=== PATIENT | female | born 1975 | race Caucasian/White ===

== ENCOUNTER 2023-11-17 09:21 | Day surgery (SDC) | payer BC ==
[2023-11-11 14:51] LABS: BILIRUBIN,URINE NEGATIVE (Neg); CLARITY,URINE CLEAR (Clear); COLOR,URINE YELLOW (Yellow); GLUCOSE, URINE NEGATIVE (Neg); KETONES,URINE NEGATIVE (Neg); LEUKOCYTE ESTERASE ,URINE NEGATIVE (Neg); NITRITES, URINE NEGATIVE (Neg); OCCULT BLOOD,URINE NEGATIVE (Neg); PROTEIN,URINE NEGATIVE (Neg); UA COLLECTION TYPE CLN CATCH MIDSTREAM; UROBILINOGEN,URINE 0.2 E.U/dL (0.2-1.0)
[2023-11-11 14:57] LABS: BASOPHILS # (AUTO) 0.1 X10'3 (0-0.2); BASOPHILS % (AUTO) 0.8 % (0-1); EOSINOPHILS # (AUTO) 0.2 X10'3 (0-0.9); EOSINOPHILS % (AUTO) 1.6 % (0-6); LYMPHOCYTES # (AUTO) 3.5 X10'3 (1.1-4.8); LYMPHOCYTES % (AUTO) 37.9 % (21-51); MEAN CORPUSCULAR HEMOGLOBIN 31.2 PG (27.0-31.0); MEAN CORPUSCULAR HGB CONC 33.7 g/dL (33.0-36.5); MEAN CORPUSCULAR VOLUME 92.5 FL (78-98); MEAN PLATELET VOLUME 8.1 FL (7.4-10.4); MONOCYTES # (AUTO) 0.5 X10'3 (0-0.9); MONOCYTES % (AUTO) 5.1 % (2-12); NEUTROPHILS # (AUTO) 5.1 X10'3 (1.8-7.7); NEUTROPHILS % (AUTO) 54.6 % (42-75); PRE OP HEMATOCRIT 44.3 % (35.0-45.0); PRE OP HEMOGLOBIN 14.9 g/dL (12.0-16.0); PRE OP PLATELET COUNT 388 X10'3 (140-440); PRE OP WHITE BLOOD COUNT 9.3 10'3 (4.8-10.8); RED BLOOD COUNT 4.79 X10'6 (4.20-5.60); RED CELL DISTRIBUTION WIDTH 13.5 % (11.5-14.5)
[2023-11-11 15:10] LABS: ALBUMIN 3.9 G/DL (3.4-5.0); ALBUMIN/GLOBULIN RATIO 1.1 (1.1-1.5); ALKALINE PHOSPHATASE 84 IU/L (46-116); BLOOD UREA NITROGEN 13 MG/DL (7-18); BUN/CREATININE RATIO 15.7 (10.0-20.0); CALCIUM 9.2 MG/DL (8.5-10.1); CHLORIDE 102 MMOL/L (99-107); CREATININE 0.83 MG/DL (0.40-0.90); PRE OP ALT 19 U/L (30-65); PRE OP ANION GAP 10 (8-16); PRE OP AST 14 U/L (10-37); PRE OP BILIRUB, TOTAL 0.5 MG/DL (0.0-1.0); PRE OP GLUCOSE 94 MG/DL (70-104); PRE OP POTASSIUM 3.7 MMOL/L (3.4-5.1); PRE OP SODIUM 138 MMOL/L (135-145); TOTAL CARBON DIOXIDE 26.4 MMOL/L (24-32); TOTAL PROTEIN 7.6 G/DL (6.4-8.2); eGFR 73 ML/MIN
[2023-11-11 15:11] LABS: PRE OP PROTIME 10.5 SECONDS (9.0-12.0)
[2023-11-11 15:16] LABS: HCG SERUM QL NEGATIVE
[~2023-11-17] VITALS: Ht 160 cm; Wt 93.7 kg
[2023-11-17] VITALS (9 sets, daily range): BP systolic 93–119; BP diastolic 59–84; PULSE 74–86; RESP 16–22; TEMP 98.2; O2SAT 93–98
[2023-11-17] MEDS: DOCUMENT DATE & TIME OF BETA-BLOCKER PO ONE (05:30)
[~2023-11-17 09:21] MED LIST: ARIP10TA57 PO; BUSP30TA3 PO; PROP10TA10 PO; TOPI25TA49 PO; VITAMIN D2; magnesium; vitamin b-12
[2023-11-17] MEDS: famotidine 20mg tablet PO ONE (10:01)
[2023-11-17] MEDS: ringers solution, lacted 1,000 ML IV SCH (10:02)
[2023-11-17] MEDS: cefazolin 2gm/D5W 100mL 100 ML IV ONE (10:03)
[2023-11-17] MEDS ORDERED: BUPIVAcaine 0.5% inj/PF 30 ML ONE (12:37)
[2023-11-17] MEDS ORDERED: LIDOcaine 1% (10mg/ml)w/preservative inj. 20ml MDV ONE (12:37)
[2023-11-17] MEDS ORDERED: midazolam 1 mg/ML 2ml injection ONE (12:59)
[2023-11-17] MEDS ORDERED: fentaNYL/PF 50MCG/1 ML 2ML syringe ONE (12:59)
[2023-11-17] MEDS ORDERED: propofol inj 20 ML IV ONE (13:02)
[2023-11-17] MEDS ORDERED: ROPIVAcaine 0.5% (5mg/ml) 30ml vial ONE ×2 (13:04)
[2023-11-17] MEDS ORDERED: sevoflurane 250ml liquid IH ONE (13:06)
[2023-11-17] MEDS ORDERED: dexamethasone sod phosphate 4mg/ml inj. ONE (13:07)
[2023-11-17] MEDS: bacitracin 15gm ointment TP ONE (13:49)
[2023-11-17] MEDS ORDERED: morphine 4 MG/ML inj SYRINge IV PRN (14:45)
[2023-11-17] MEDS ORDERED: meperidine/PF 25mg/ml syringe IV PRN ×3 (14:45)
[2023-11-17] MEDS ORDERED: proCHLORperazine 10 MG/2 ml inj IV PRN (14:45)
[2023-11-17] MEDS ORDERED: morphine 2 MG/ML inj. syringe IV PRN (14:45)
[2023-11-17] MEDS ORDERED: ringers solution, lacted 1,000 ML IV SCH (14:45)
[2023-11-17] MEDS ORDERED: ondansetron/PF 4mg/2ml inj IV PRN (14:45)
[2023-11-17] MEDS ORDERED: ondansetron/PF 4mg/2ml inj ONE (15:05)
== END 2023-11-17 17:03 | disposition home or self-care (01) ==
LOC: PAS 09:21
PROVIDERS: ATTEND Podiatrist Foot & Ankle Surgery
DX: M19.071 Primary osteoarthritis, right ankle and foot (principal); G89.18 Other acute postprocedural pain; E66.9 Obesity, unspecified; I20.9 Angina pectoris, unspecified; F41.9 Anxiety disorder, unspecified; G47.30 Sleep apnea, unspecified; I25.2 Old myocardial infarction; Z87.891 Personal history of nicotine dependence; Z79.899 Other long term (current) drug therapy; Z68.36 Body mass index [BMI] 36.0-36.9, adult
CPT/HCPCS: 28122; 28737; 28740; 36415; 64445; 71046; 73620; 80053; 81003; 82948; 84703; 85025; 85610; 85730; 93005; A6222; C1713; C1776; J0690; J0735; J1100; J2250; J2405; J2704; J2795; J3010; J7030; J7120; Z7506; Z7508; Z7512; 76000; A4618; A6253; A6449; A6455; A7000; J3490

== ENCOUNTER 2024-05-04 08:03 | Day surgery (SDC) | payer BC, OTHER ==
[2024-05-04] VITALS (7 sets, daily range): BP systolic 114–136; BP diastolic 82–98; PULSE 81–97; RESP 12–23; TEMP 98.7; O2SAT 95–100
[~2024-05-04] VITALS: Ht 160 cm; Wt 90.1 kg
[2024-05-04] MEDS: ceFAZolin 2gm in dextrose, iso 50 ML IV ONE (05:30)
[~2024-05-04 08:03] MED LIST changes: -ARIP10TA57 PO; +ARIP10TA87 PO; -BUSP30TA3 PO; +DOCUMENT DATE & TIME OF BETA-BLOCKER PO ONE; +SERT-434 PO; -VITAMIN D2; -magnesium; -vitamin b-12
[2024-05-04] MEDS: ringers solution, lacted 1,000 ML IV SCH (09:23)
[2024-05-04] MEDS: famotidine 20mg tablet PO ONE (09:23)
[2024-05-04] MEDS ORDERED: midazolam 1 mg/ML 2ml injection ONE (09:46)
[2024-05-04] MEDS ORDERED: fentaNYL/PF 50MCG/1 ML 2ML syringe ONE (09:46)
[2024-05-04 10:00] LABS: BASOPHILS # (AUTO) 0.1 X10'3 (0-0.2); BASOPHILS % (AUTO) 0.7 % (0-1); EOSINOPHILS # (AUTO) 0.1 X10'3 (0-0.9); LYMPHOCYTES # (AUTO) 2.3 X10'3 (1.1-4.8); LYMPHOCYTES % (AUTO) 25.5 % (21-51); MEAN CORPUSCULAR HEMOGLOBIN 30.4 PG (27.0-31.0); MEAN CORPUSCULAR HGB CONC 33.8 g/dL (33.0-36.5); MEAN CORPUSCULAR VOLUME 89.9 FL (78-98); MEAN PLATELET VOLUME 8.4 FL (7.4-10.4); MONOCYTES # (AUTO) 0.5 X10'3 (0-0.9); NEUTROPHILS # (AUTO) 6.2 X10'3 (1.8-7.7); NEUTROPHILS % (AUTO) 67.8 % (42-75); PRE OP HEMATOCRIT 44.5 % (35.0-45.0); PRE OP PLATELET COUNT 371 X10'3 (140-440); PRE OP WHITE BLOOD COUNT 9.1 10'3 (4.8-10.8); PREOP URINE HCG NEGATIVE (NEGATIVE); RED BLOOD COUNT 4.95 X10'6 (4.20-5.60); RED CELL DISTRIBUTION WIDTH 13.4 % (11.5-14.5)
[2024-05-04 10:02] LABS: BILIRUBIN,URINE NEGATIVE (Neg); CLARITY,URINE CLEAR (Clear); COLOR,URINE YELLOW (Yellow); GLUCOSE, URINE NEGATIVE (Neg); KETONES,URINE NEGATIVE (Neg); LEUKOCYTE ESTERASE ,URINE NEGATIVE (Neg); NITRITES, URINE NEGATIVE (Neg); OCCULT BLOOD,URINE NEGATIVE (Neg); PH,URINE 6.5 (4.8-8.0); PROTEIN,URINE NEGATIVE (Neg); UA COLLECTION TYPE CLN CATCH MIDSTREAM; UROBILINOGEN,URINE 0.2 E.U/dL (0.2-1.0)
[2024-05-04 10:09] LABS: PRE OP PROTIME 10.6 SECONDS (9.0-12.0)
[2024-05-04 10:11] LABS: ALBUMIN 3.7 G/DL (3.4-5.0); ALBUMIN/GLOBULIN RATIO 0.9 (1.1-1.5); ALKALINE PHOSPHATASE 98 IU/L (46-116); BLOOD UREA NITROGEN 14 MG/DL (7-18); BUN/CREATININE RATIO 14.1 (10.0-20.0); CALCIUM 9.2 MG/DL (8.5-10.1); CHLORIDE 106 MMOL/L (99-107); CREATININE 0.99 MG/DL (0.40-0.90); PRE OP ALT 26 U/L (30-65); PRE OP ANION GAP 11 (8-16); PRE OP AST 12 U/L (10-37); PRE OP BILIRUB, TOTAL 0.5 MG/DL (0.0-1.0); PRE OP GLUCOSE 109 MG/DL (70-104); PRE OP POTASSIUM 3.7 MMOL/L (3.4-5.1); PRE OP SODIUM 142 MMOL/L (135-145); TOTAL CARBON DIOXIDE 24.9 MMOL/L (24-32); TOTAL PROTEIN 7.7 G/DL (6.4-8.2); eCRCL 54 ML/MIN; eGFR 59 ML/MIN
[2024-05-04] MEDS: aprepitant 40mg capsule PO ONE (10:59)
[2024-05-04] MEDS: scopolamine 1MG/72H patch 1 PATCH PATCH.TD.3 TD ONE (11:00)
[2024-05-04] MEDS ORDERED: BUPIVAcaine 2.5mg/ml inj 50ml vial (contains preservative) ONE (11:03)
[2024-05-04] MEDS ORDERED: bacitracin 15gm ointment TP ONE (11:03)
[2024-05-04] MEDS ORDERED: proCHLORperazine 10 MG/2 ml inj IV PRN (11:05)
[2024-05-04] MEDS ORDERED: enalaprilat dihydrate 2.5mg/2ml vial IV PRN (11:05)
[2024-05-04] MEDS ORDERED: morphine 4 MG/ML inj SYRINge IV PRN (11:05)
[2024-05-04] MEDS ORDERED: ringers solution, lacted 1,000 ML IV SCH (11:05)
[2024-05-04] MEDS ORDERED: meperidine/PF 25mg/ml syringe IV PRN ×3 (11:05)
[2024-05-04] MEDS ORDERED: labetalol 20mg/4ml (5mg/ml) syringe IV PRN (11:05)
[2024-05-04] MEDS ORDERED: morphine 2 MG/ML inj. syringe IV PRN (11:05)
[2024-05-04] MEDS ORDERED: ondansetron/PF 4mg/2ml inj IV PRN (11:05)
[2024-05-04] MEDS ORDERED: sevoflurane 250ml liquid IH ONE (11:13)
== END 2024-05-04 14:42 | disposition home or self-care (01) ==
LOC: PAS 08:03
PROVIDERS: ATTEND Podiatrist Foot & Ankle Surgery
DX: T84.84XA Pain due to internal orthopedic prosthetic devices, implants and grafts, initial encounter (principal); M79.671 Pain in right foot; E66.9 Obesity, unspecified; G47.33 Obstructive sleep apnea (adult) (pediatric); F41.9 Anxiety disorder, unspecified; I25.2 Old myocardial infarction; Z87.891 Personal history of nicotine dependence; Z79.899 Other long term (current) drug therapy; Z90.49 Acquired absence of other specified parts of digestive tract; Z90.89 Acquired absence of other organs; Z98.890 Other specified postprocedural states; Z68.35 Body mass index [BMI] 35.0-35.9, adult; Z88.8 Allergy status to other drugs, medicaments and biological substances; Y83.8 Other surgical procedures as the cause of abnormal reaction of the patient, or of later complication, without mention of misadventure at the time of the procedure; Y92.89 Other specified places as the place of occurrence of the external cause
CPT/HCPCS: 20680; 28740; 36415; 73620; 80053; 81003; 81025; 82948; 85025; 85610; 85730; A6222; C1713; C1776; J0131; J0690; J1885; J2250; J2405; J2704; J3010; J7030; J7120; J8501; Z7506; Z7508; Z7512; 76000; A4618; A4620; A6253; A6449; A6455; A7000; J3490

== ENCOUNTER 2024-11-15 11:06 | Day surgery (SDC) | payer OTHER ==
--- NOTE | 2024-11-09 14:14 | ELECTROCARDIOGRAPH REPORT ---
[facility] Test Date: 2024-11-09 Test Time: 14:11:13 Pat Name: MAIRA COX Department: PRE/OP CARDIOLOGY Room: Gender: F Jalousie Installer: NILSA : 1975 Requested By: JOHNNY RAMIREZ Order Number: [id number] Reading MD: Dr. SHERRILL Evans Measurements Intervals [place] Rate: 98 P: 58 PA: 133 QRS: 55 QRSD: 96 T: -20 QT: 350 QTc: 447 Interpretive Statements Sinus rhythm Borderline T abnormalities, inferior leads Electronically Signed On 11-09-2024 20:04:[address] SHERRILL Evans Please click the below link to view image of tracing.
[2024-11-09 15:04] LABS: BILIRUBIN,URINE NEGATIVE (Neg); CLARITY,URINE CLEAR (Clear); COLOR,URINE YELLOW (Yellow); GLUCOSE, URINE NEGATIVE (Neg); KETONES,URINE NEGATIVE (Neg); LEUKOCYTE ESTERASE ,URINE NEGATIVE (Neg); OCCULT BLOOD,URINE NEGATIVE (Neg); PH,URINE 5.5 (4.8-8.0); PROTEIN,URINE NEGATIVE (Neg); UROBILINOGEN,URINE 0.2 E.U/dL (0.2-1.0)
[2024-11-09 15:09] LABS: BASOPHILS # (AUTO) 0.1 X10'3 (0-0.2); EOSINOPHILS # (AUTO) 0.2 X10'3 (0-0.9); EOSINOPHILS % (AUTO) 1.3 % (0-6); LYMPHOCYTES # (AUTO) 3.8 X10'3 (1.1-4.8); MEAN CORPUSCULAR HEMOGLOBIN 29.8 PG (27.0-31.0); MEAN CORPUSCULAR VOLUME 90.1 FL (78-98); MEAN PLATELET VOLUME 8.4 FL (7.4-10.4); MONOCYTES # (AUTO) 0.8 X10'3 (0-0.9); MONOCYTES % (AUTO) 6.7 % (2-12); NEUTROPHILS # (AUTO) 6.7 X10'3 (1.8-7.7); PRE OP HEMOGLOBIN 15.5 g/dL (12.0-16.0); PRE OP PLATELET COUNT 450 X10'3 (140-440); PRE OP WHITE BLOOD COUNT 11.6 10'3 (4.8-10.8); RED BLOOD COUNT 5.22 X10'6 (4.20-5.60); RED CELL DISTRIBUTION WIDTH 13.7 % (11.5-14.5)
[2024-11-09 15:17] LABS: NITRITES, URINE NEGATIVE (Neg); UA COLLECTION TYPE NON-SPECIFIED
[2024-11-09 15:23] LABS: ALBUMIN 4.1 G/DL (3.4-5.0); ALBUMIN/GLOBULIN RATIO 1.1 (1.1-1.5); ALKALINE PHOSPHATASE 129 IU/L (46-116); BLOOD UREA NITROGEN 17 MG/DL (7-18); BUN/CREATININE RATIO 15.7 (10.0-20.0); CALCIUM 9.7 MG/DL (8.5-10.1); CHLORIDE 101 MMOL/L (99-107); CREATININE 1.08 MG/DL (0.40-0.90); PRE OP ALT 31 U/L (30-65); PRE OP ANION GAP 8 (8-16); PRE OP AST 14 U/L (10-37); PRE OP BILIRUB, TOTAL 0.8 MG/DL (0.0-1.0); PRE OP GLUCOSE 113 MG/DL (70-104); PRE OP POTASSIUM 3.7 MMOL/L (3.4-5.1); PRE OP SODIUM 140 MMOL/L (135-145); TOTAL CARBON DIOXIDE 30.8 MMOL/L (24-32); eGFR 53 ML/MIN
[2024-11-09 15:39] LABS: PRE OP PROTIME 10.6 SECONDS (9.0-12.0)
[~2024-11-15] VITALS: Ht 160 cm; Wt 90.7 kg
[~2024-11-15 11:06] MED LIST changes: -DOCUMENT DATE & TIME OF BETA-BLOCKER PO ONE; +TOPI-255 PO; -TOPI25TA49 PO; +ceFAZolin 2gm in dextrose, iso 50 ML IV ONE; +famotidine 20mg tablet PO ONE; +ringers solution, lacted 1,000 ML IV SCH
[2024-11-15 11:33] VITALS: RESP 15; O2SAT 97
== END 2024-11-15 12:00 | disposition swing bed, planned readmission (89) ==
LOC: PAS 11:06
PROVIDERS: ATTEND Podiatrist Foot & Ankle Surgery
DX: M79.671 Pain in right foot (principal); Z53.8 Procedure and treatment not carried out for other reasons; M19.071 Primary osteoarthritis, right ankle and foot; T84.84XA Pain due to internal orthopedic prosthetic devices, implants and grafts, initial encounter; G40.909 Epilepsy, unspecified, not intractable, without status epilepticus; Y83.8 Other surgical procedures as the cause of abnormal reaction of the patient, or of later complication, without mention of misadventure at the time of the procedure; F41.9 Anxiety disorder, unspecified; F32.A Depression, unspecified; Z98.890 Other specified postprocedural states; G47.30 Sleep apnea, unspecified; Z79.899 Other long term (current) drug therapy
CPT/HCPCS: 36415; 80053; 81003; 85025; 85610; 85730; 93005; J0690; J7120

== ENCOUNTER 2024-11-15 12:02 | Inpatient (IN) | payer BC, OTHER ==
[~2024-11-15] VITALS: Ht 160 cm; Wt 98.6 kg
[~2024-11-15 12:02] MED LIST changes: -ceFAZolin 2gm in dextrose, iso 50 ML IV ONE; -famotidine 20mg tablet PO ONE; -ringers solution, lacted 1,000 ML IV SCH
[2024-11-15] MEDS: acetaminophen 325mg tablet PO ONE ×3 (12:26→18:45)
--- NOTE | 2024-11-15 12:54 | RADIOLOGY REPORT ---
EXAM: DI CHEST,SINGLE VIEW Indication: sepsis alert Technique: Single frontal view of the chest was obtained Comparison: None FINDINGS: Lines and Tubes: None Lungs: No focal consolidation. Pleura: No effusion. No pneumothorax. Cardiomediastinal contours: Unremarkable Bones: No acute osseous abnormality. IMPRESSION: No acute cardiopulmonary disease.
[2024-11-15 13:45] LABS: BASOPHILS # (AUTO) 0.1 X10'3 (0-0.2); BASOPHILS % (AUTO) 0.4 % (0-1); EOSINOPHILS # (AUTO) 0.2 X10'3 (0-0.9); EOSINOPHILS % (AUTO) 0.8 % (0-6); HEMOGLOBIN 13.8 g/dl (12.0-16.0); LYMPHOCYTES # (AUTO) 1.9 X10'3 (1.1-4.8); MEAN CORPUSCULAR HEMOGLOBIN 29.5 PG (27.0-31.0); MEAN CORPUSCULAR HGB CONC 32.9 g/dL (33.0-36.5); MEAN CORPUSCULAR VOLUME 89.7 FL (78-98); MEAN PLATELET VOLUME 8.4 FL (7.4-10.4); MONOCYTES % (AUTO) 8.4 % (2-12); NEUTROPHILS # (AUTO) 19.7 X10'3 (1.8-7.7); NEUTROPHILS % (AUTO) 82.4 % (42-75); PLATELET COUNT 348 X10'3 (140-440); RED BLOOD COUNT 4.68 X10'6 (4.20-5.60); RED CELL DISTRIBUTION WIDTH 13.5 % (11.5-14.5); WHITE BLOOD COUNT 23.8 X10'3 (4.5-11.0)
[2024-11-15 13:47] LABS: ALBUMIN 3.1 G/DL (3.4-5.0); ANION GAP 14 (8-16); BLOOD UREA NITROGEN 12 MG/DL (7-18); BUN/CREATININE RATIO 13.5 (10.0-20.0); CALCIUM 8.9 MG/DL (8.5-10.1); CHLORIDE 98 MMOL/L (99-107); CREATININE 0.89 MG/DL (0.40-0.90); GLUCOSE 110 MG/DL (70-104); POTASSIUM 3.4 MMOL/L (3.5-5.1); SODIUM 134 MMOL/L (135-145); TOTAL CARBON DIOXIDE 22.3 MMOL/L (24-32); eCRCL 62 ML/MIN; eGFR 67 ML/MIN
--- NOTE | 2024-11-15 14:12 | Physician Documentation ---
History of Present Illness Chief Complaint: Fever Stated Complaint: FEVER Time Seen by MD: 13:51 Primary Medical Doctor: none Mode of Arrival: Ambulatory, Wheelchair HPI 49-year-old female presenting with abdominal pain that began this morning when she woke up. Pain is located in the right lower side of her stomach and does not radiate. She states that it is about moderate rating it at approximately six to 7/10 on intensity. Pain has been constant. Additionally she states that she has developed a fever and a headache as well. She reports that she was supposed to have surgery today on her foot at this hospital but when she went to preop they measured her temperature and told her she had a fever and sent her to the emergency department and subsequently canceled the surgery. She denies any nausea, vomiting or any other associated symptoms. Medication Reconciliation Allergies: Uncoded Allergies: NARCOTIC DRUGS (Adverse Reaction, Unknown, NAUSEA, 05/03/24) Scheduled Aripiprazole (Aripiprazole), 1 TAB PO DAILY, (Reported) Sertraline HCl (Sertraline HCl), 1 TAB PO DAILY, (Reported) Topiramate (Topiramate), 2 TAB PO DAILY, (Reported) Scheduled PRN Propranolol Hcl* (Inderal*), 1 TAB PO DAILY PRN for for anxiety/agitation, (Reported) Review of Systems All Other Systems at this time: Reviewed and Negative Physical Exam Vital Signs: Temperature: 101.5, Source: Axillary, Heart Rate: 111, Respiratory Rate: 18, BP: 146/74, Pulse Oximetry: 96, Weight: 98.600 Oxygen Flow Rate: 0 Physical Exam I have reviewed the triage vitals. CONST: Well developed and well nourished. In no acute distress HENT: Head Atraumatic EYES: Pupils are equal, round and reactive to light. Normal conjunctiva NECK: Normal range of motion. Supple. CARDIO: Normal rate and regular rhythm. No murmurs, rubs, or gallops. S1, S2. PULM/CHEST: No respiratory distress. Lungs clear to auscultation. No wheeze ABD: Soft. Tenderness to palpation over the right lower quadrant. Nondistended. Bowel sounds normal. No guarding. : Exam deferred MSK: No edema. No deformity. NEURO: Alert and oriented to person, place and time. Moving all extremities SKIN: Warm and dry. PSYCH: Normal mood and affect. Good eye contact. Progress Results/Orders Results/Orders Orders - PATO REYNOSO MD Cbc/Diff (11/15/24 12:16) Culture Blood (11/15/24 12:16) Urinalysis, Cult If Indicated (11/15/24 12:16) Chest,Single View (11/15/24 12:34) Monitor (11/15/24 12:16) Saline Lock (11/15/24 12:16) Straight Cath For Urine Sample (11/15/24 12:16) Man Diff (11/15/24 13:27) Normal Saline 1000ml (Sodium Chloride 10 (11/15/24 14:05) Ketorolac Trometh 30mg/Ml Vial (Toradol (11/15/24 14:05) Piperacillin/Tazo 3.375gm/50ml (Zosyn 3. (11/15/24 14:05) Pt Inr (11/15/24 14:08) PTT (11/15/24 14:08) Ct Abdomen Pelvis (11/15/24 14:08) Acetaminophen 325mg Tablet (Tylenol Tabl (11/15/24 14:10) Completed Orders - PATO REYNOSO MD Chest,Single View (11/15/24 12:34) Procalcitonin (11/15/24 12:16) BMP (11/15/24 12:16) Lacticsepsis (11/15/24 12:16) Acetaminophen 325mg Tablet (Tylenol Tabl (11/15/24 12:20) Medications Received in ER Medications (Trade) Dose Ordered Sig/Flaca Route PRN Reason Start Time Stop Time Status Last Admin Dose Admin (Tylenol tablet) 650 mg ONCE ONCE PO 11/15/24 12:20 11/15/24 12:21 DC 11/15/24 12:26 650 MG Vital Signs 11/15/24 11/15/24 11/15/24 12:10 13:30 13:49 Temp 101.5 101.5 Pulse 108 111 Resp 16 18 18 B/P (MAP) 157/86 146/74 (98) Pulse Ox 96 96 O2 Flow Rate 0 0 Laboratory Tests Test 11/15/24 13:27 White Blood Count 23.8 H Red Blood Count 4.68 Hemoglobin 13.8 Hematocrit 42.0 Mean Corpuscular Volume 89.7 Mean Corpuscular Hemoglobin 29.5 Mean Corpuscular Hemoglobin Concent 32.9 L Red Cell Distribution Width 13.5 Platelet Count 348 Mean Platelet Volume 8.4 Neutrophils (%) (Auto) 82.4 H Lymphocytes (%) (Auto) 8.0 L Monocytes (%) (Auto) 8.4 Eosinophils (%) (Auto) 0.8 Basophils (%) (Auto) 0.4 Neutrophils # (Auto) 19.7 H Lymphocytes # (Auto) 1.9 Monocytes # (Auto) 2.0 H Eosinophils # (Auto) 0.2 Basophils # (Auto) 0.1 CBC Comment Basophilic Stippling Sodium Level 134 L Potassium Level 3.4 L Chloride Level 98 L Carbon Dioxide Level 22.3 L Anion Gap 14 Blood Urea Nitrogen 12 Creatinine 0.89 Estimated GFR/1.73 m2 67 BUN/Creatinine Ratio 13.5 Glucose Level 110 H Lactic Acid Level 1.1 Calcium Level 8.9 Albumin 3.1 L Procalcitonin < 0.05 Chemistry Comments EKG/XRAY/CT/US/VASC/MRI EKG : Additional Comment Sinus tachycardia with a rate of 102 beats per minute, no ischemia, normal axis, interpreted by ED MD Chest X-Ray : Additional Comments EXAM: DI CHEST,SINGLE VIEW Indication: sepsis alert Technique: Single frontal view of the chest was obtained Comparison: None FINDINGS: Lines and Tubes: None Lungs: No focal consolidation. Pleura: No effusion. No pneumothorax. Cardiomediastinal contours: Unremarkable Bones: No acute osseous abnormality. IMPRESSION: No acute cardiopulmonary disease. : Impression EXAM: CT CT HEAD INDICATION: headache EXAM DATE: 11/15/2024 05:16 PM COMPARISON: None TECHNIQUE: CT of the head without intravenous contrast. Radiation Dose Information: CTDI volume is 42.73 mGy. Dose-length product is 730.94 mGy*cm FINDINGS: There is no evidence of acute intracranial hemorrhage, extra-axial collection, mass effect, midline shift, herniation or hydrocephalus. The ventricles, sulci and cisterns are age appropriate. The carver-white differentiation is intact. The visualized paranasal sinuses and mastoid air cells are clear. The surrounding soft tissues and osseous structures are unremarkable. IMPRESSION: 1. No evidence of acute intracranial hemorrhage, mass effect or hydrocephalus. Exam: CT CT ABDOMEN PELVIS W/ IV CONTRAST History: RLQ pain- r/o appendicitis Comparison Study: None C TECHNIQUE: A digital sheep killer image was obtained. During the uneventful, intravenous administration of contrast material, multislice data acquisition was obtained through the abdomen and pelvis. The data set was subsequently reconstructed into axial images. Images were reviewed on a work station using a combination of axial and multiplanar using a variety of window levels and settings. Radiation Dose Information: CT Dose: CTDI volume is 25 mGy. Dose-length product is 250 mGy*cm FINDINGS: Lung Bases: No acute or significant lung base finding. Normal heart size. No pleural or pericardial effusion. Liver: Hepatic steatosis. Gallbladder and Biliary Tree: Gallbladder is surgically absent. Spleen: Unremarkable Pancreas: The pancreas is normal in appearance without focal lesions or abnormal enhancement. Adrenal Glands: Unremarkable Kidneys: Kidneys demonstrate normal symmetric enhancement without focal lesions, calculi or hydronephrosis. Bladder: Unremarkable Bowel: The stomach is grossly normal in appearance. Small bowel and colon are normal in caliber and distribution. Normal appendix is visualized in the right lower quadrant without findings of appendicitis. Ascites: Absent Lymphadenopathy: No mesenteric, retroperitoneal or periportal lymphadenopathy. Abdominal Wall and Mesentery: There is a right upper quadrant umbilical hernia containing fat measuring 2.5 cm. Vasculature: The visualized abdominal aorta is normal in size and caliber. Abdominal and pelvic vessels demonstrate normal enhancement. Pelvic Organs: IUD is present. Musculoskeletal: No aggressive focal bony lesions, acute fractures or dislocation. Soft tissues: Unremarkable. IMPRESSION: No acute abnormality in the abdomen or pelvis. Medical Decision Making Additional Comments 49-year-old female presenting with a fever and right lower quadrant abdominal pain as well as a headache. Lab workup indicates a significant WBC elevation of 23. Patient was also febrile upon presentation with a temperature of 101. She was medicated with two doses of 650 mg acetaminophen with improvement in her temperature. For her pain the patient was treated with IV Toradol 30 mg. She was also started on IV normal saline. CT of the abdomen and pelvis showed no appendicitis or other abnormalities. Her urinalysis did have some mild leukocyte esterase but was not clearly are strongly suggestive of a urinary tract infection. Patient does have a headache and there is some concern for meningitis as well. The patient was started on IV vancomycin and IV Zosyn. Also given 10 mg of IV Decadron. Given these findings the patient will need to be admitted for further treatment and care. Patient does require a lumbar puncture as well. Patient will be admitted to hospitalist service pending a lumbar puncture which will be signed out to incoming ED physician. Dr. Zamora of the hospitalist service did accept the patient. Departure Disposition: ADMITTED INPATIENT Admission Level of Care: Med/Surg with Tele Impression: Primary Impression: Fever Additional Impression: UTI (urinary tract infection) Condition: Guarded Referrals: NO PRIMARY CARE PROVIDER (PCP) Signature Scribe Signature: 1 Attestation: 1 PATO REYNOSO MD November 15, 2024 14:12
[2024-11-15] MEDS ORDERED: iohexol 300mg/ml 100ml inj. ONE (14:23)
[2024-11-15 14:25] LABS: PLATELET ESTIMATE NORMAL; TOTAL CELLS COUNTED 100
[2024-11-15] MEDS: piperacillin/tazo 3.375gm/50ml 50 ML IV SCH (14:31)
[2024-11-15 14:34] LABS: APTT 25 SECONDS (22-32); INR 1.1 INR; PROTHROMBIN TIME 10.8 SECONDS (9.0-12.0)
[2024-11-15] MEDS: normal saline 1000ml 1,000 ML IV ONE (14:51)
[2024-11-15] MEDS: ketorolac trometh 30MG/ML vial 30 MG/ML VIAL IV ONE (14:53)
[2024-11-15 15:10] LABS: BILIRUBIN,URINE NEGATIVE (Neg); CLARITY,URINE CLEAR (Clear); COLOR,URINE YELLOW (Yellow); GLUCOSE, URINE NEGATIVE (Neg); KETONES,URINE NEGATIVE (Neg); LEUKOCYTE ESTERASE ,URINE SMALL (Neg); NITRITES, URINE NEGATIVE (Neg); OCCULT BLOOD,URINE TRACE-INTACT (Neg); PROTEIN,URINE NEGATIVE (Neg); UROBILINOGEN,URINE 0.2 E.U/dL (0.2-1.0)
[2024-11-15 15:18] LABS: UA COLLECTION TYPE CLN CATCH MIDSTREAM
[2024-11-15 15:46] LABS: RBC,URINE 0-2 /HPF (0-2)
[2024-11-15 15:49] LABS: BACTERIA,URINE FEW /HPF (Neg); MUCUS STRANDS NONE SEEN /LPF (Neg); SQUAMOUS EPITHELIAL CELL,UR FEW /LPF (FEW); URIC ACID CRYSTALS FEW /HPF (NEGATIVE)
--- NOTE | 2024-11-15 16:12 | RADIOLOGY REPORT ---
Exam: CT CT ABDOMEN PELVIS W/ IV CONTRAST History: RLQ pain- r/o appendicitis Comparison Study: None C TECHNIQUE: A digital oyster tonger image was obtained. During the uneventful, intravenous administration of c ontrast material, multislice data acquisition was obtained through the abdomen and pelvis. The data s et was subsequently reconstructed into axial images. Images were reviewed on a work station using a c ombination of axial and multiplanar using a variety of window levels and settings. Radiation Dose Information: CT Dose: CTDI volume is 25 mGy. Dose-length product is 250 mGy*cm FINDINGS: Lung Bases: No acute or significant lung base finding. Normal heart size. No pleural or pericardial effusion. Liver: Hepatic steatosis. Gallbladder and Biliary Tree: Gallbladder is surgically absent. Spleen: Unremarkable Pancreas: The pancreas is normal in appearance without focal lesions or abnormal enhancement. Adrenal Glands: Unremarkable Kidneys: Kidneys demonstrate normal symmetric enhancement without focal lesions, calculi or hydroneph rosis. Bladder: Unremarkable Bowel: The stomach is grossly normal in appearance. Small bowel and colon are normal in caliber and d istribution. Normal appendix is visualized in the right lower quadrant without findings of appendici tis. Ascites: Absent Lymphadenopathy: No mesenteric, retroperitoneal or periportal lymphadenopathy. Abdominal Wall and Mesentery: There is a right upper quadrant umbilical hernia containing fat measuri ng 2.5 cm. Vasculature: The visualized abdominal aorta is normal in size and caliber. Abdominal and pelvic vess els demonstrate normal enhancement. Pelvic Organs: IUD is present. Musculoskeletal: No aggressive focal bony lesions, acute fractures or dislocation. Soft tissues: Unremarkable. IMPRESSION: No acute abnormality in the abdomen or pelvis. All CT scans at this medical facility are performed using dose modulation techniques as appropriate t o a performed exam including the following: Automated exposure control was utilized; adjustment of th e MA and/or KV according to patient size; and use of iterative reconstruction technique.
[2024-11-15] MEDS: dexamethasone sod phosphate 10mg/ml inj IV STA (17:30)
--- NOTE | 2024-11-15 17:31 | RADIOLOGY REPORT ---
EXAM: CT CT HEAD INDICATION: headache EXAM DATE: 11/15/2024 05:16 PM COMPARISON: None TECHNIQUE: CT of the head without intravenous contrast. Radiation Dose Information: CTDI volume is 42.73 mGy. Dose-length product is 730.94 mGy*cm FINDINGS: There is no evidence of acute intracranial hemorrhage, extra-axial collection, mass effect, midline s hift, herniation or hydrocephalus. The ventricles, sulci and cisterns are age appropriate. The carver-w arvin differentiation is intact. The visualized paranasal sinuses and mastoid air cells are clear. The surrounding soft tissues and osseous structures are unremarkable. IMPRESSION: 1. No evidence of acute intracranial hemorrhage, mass effect or hydrocephalus.
[2024-11-15] MEDS: vancomycin/NS 1 GM ADD-VANTAGE 250 ML IV ONE (18:45)
[2024-11-15] MEDS ORDERED: magnesium sulf-water 4G/100mL 100 ML IV PRN (19:25)
[2024-11-15] MEDS ORDERED: ondansetron/PF 4mg/2ml inj IV PRN (19:25)
[2024-11-15] MEDS ORDERED: mag hydrox/Alum hydrox/simeth 30ml oral suspension PO PRN (19:25)
[2024-11-15] MEDS ORDERED: potassium Cl 20 mEq SR tablet PO PRN (19:25)
[2024-11-15] MEDS ORDERED: HYDROmorphone inj. 0.5 MG/0.5 ML DISP.SYRIN IV PRN (19:25)
[2024-11-15] MEDS ORDERED: acetaminophen 325mg tablet PO PRN (19:25)
[2024-11-15] MEDS ORDERED: HYDROcodone/acetaminophen 5mg/325mg tablet PO PRN (19:25)
[2024-11-15] MEDS ORDERED: potassium Cl 40MEQ/1/2NS 520ml 520 ML IV PRN (19:25)
[2024-11-15] MEDS ORDERED: bisacodyl 10mg suppository rectal RC PRN (19:25)
[2024-11-15] MEDS ORDERED: HYDROmorphone/PF 0.2 MG/ML SYRINGE IV PRN (19:25)
[2024-11-15] MEDS ORDERED: magnesium sulf-water 2g/50mL 50 ML IV PRN (19:25)
[2024-11-15] MEDS ORDERED: HYDROcodone/acetaminophen 10/325mg tab PO PRN (19:25)
[2024-11-15] MEDS ORDERED: magnesium hydroxide 30ml (MOM) UD suspension PO PRN (19:25)
[2024-11-15] MEDS: docusate sod 100mg capsule PO SCH (19:50)
[2024-11-15] MEDS: K and/or MAG REPLACEMENT MC SCH (19:50)
[2024-11-15] MEDS: enoxaparin 40mg/0.4ml syringe SQ SCH (20:15)
[2024-11-15] MEDS: vancomycin inj. 750 MG in normal saline 250ml IV soln 250 ML IV ONE (20:36)
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
[2024-11-15 21:48] VITALS: BP 131/86; PULSE 84; RESP 13; TEMP 97.8; O2SAT 95
[2024-11-15] MEDS: potassium Cl 20 mEq SR tablet PO PRN (23:59)
[2024-11-16] MEDS: piperacillin/tazo 4.5gm/100ml 100 ML IV SCH
[2024-11-16 05:43] LABS: BASOPHILS % (AUTO) 0.1 % (0-1); EOSINOPHILS % (AUTO) 0 % (0-6); HEMATOCRIT 39.7 % (35.0-45.0); HEMOGLOBIN 13.3 g/dl (12.0-16.0); LYMPHOCYTES % (AUTO) 6.3 % (21-51); MEAN CORPUSCULAR HEMOGLOBIN 30.2 PG (27.0-31.0); MEAN CORPUSCULAR HGB CONC 33.5 g/dL (33.0-36.5); MEAN CORPUSCULAR VOLUME 90.3 FL (78-98); MEAN PLATELET VOLUME 8.5 FL (7.4-10.4); MONOCYTES # (AUTO) 1.1 X10'3 (0-0.9); MONOCYTES % (AUTO) 3.4 % (2-12); NEUTROPHILS # (AUTO) 27.9 X10'3 (1.8-7.7); NEUTROPHILS % (AUTO) 90.2 % (42-75); PLATELET COUNT 369 X10'3 (140-440); RED CELL DISTRIBUTION WIDTH 13.5 % (11.5-14.5)
[2024-11-16 06:00] VITALS: BP 126/68; PULSE 92; RESP 16; TEMP 98.5; O2SAT 95
[2024-11-16 06:01] LABS: ALANINE AMINOTRANSFERASE 27 U/L (12-78); ALBUMIN 2.5 G/DL (3.4-5.0); ALBUMIN/GLOBULIN RATIO 0.6 (1.1-1.5); ALKALINE PHOSPHATASE 119 IU/L (46-116); ANION GAP 8 (8-16); ASPARTATE AMINO TRANSFERASE 12 U/L (10-37); BILIRUBIN,TOTAL 0.6 MG/DL (0.1-1.0); BLOOD UREA NITROGEN 14 MG/DL (7-18); BUN/CREATININE RATIO 16.5 (10.0-20.0); CHLORIDE 107 MMOL/L (99-107); CREATININE 0.85 MG/DL (0.40-0.90); GLUCOSE 169 MG/DL (70-104); MAGNESIUM 2.1 MG/DL (1.5-2.4); POTASSIUM 3.9 MMOL/L (3.5-5.1); SODIUM 140 MMOL/L (135-145); TOTAL CARBON DIOXIDE 25.4 MMOL/L (24-32); TOTAL PROTEIN 6.8 G/DL (6.4-8.2); eCRCL 65 ML/MIN; eGFR 71 ML/MIN
[2024-11-16 06:49] LABS: TOTAL CELLS COUNTED 100
[2024-11-16 06:50] LABS: PLATELET ESTIMATE NORMAL
[2024-11-16] MEDS: vancomycin/NS 1 GM ADD-VANTAGE 250 ML IV SCH (08:00)
[2024-11-16] MEDS ORDERED: VANCOmycin 1250MG/NS 250ml Bag 250 ML IV SCH (08:00)
[2024-11-16] MEDS: normal saline 1000ml 1,000 ML IV SCH (08:12)
[2024-11-16 10:00] VITALS: BP 144/76; PULSE 104; RESP 21; TEMP 97.7; O2SAT 95
[2024-11-16] MEDS: nicotine 21mg patch - 24 hr TD ONE (10:47)
[2024-11-16 14:02] LABS: SYPHILIS SCREENING TEST POC NEGATIVE (Negative)
[2024-11-16 18:00] VITALS: BP 121/75; PULSE 80; RESP 18; TEMP 98.1; O2SAT 95
[2024-11-16 22:00] VITALS: BP 111/58; PULSE 82; RESP 16; TEMP 97.3; O2SAT 98
--- NOTE | 2024-11-16 22:24 | PROGRESS NOTE ---
Daily Progress Note Providers to CC ~ Antibiotic Timeout Antibiotic Ordered?: Yes Subjective The patient has been afebrile now for close to 24 [place] [id number]- the patient asked if she can have a STD and urine was sent for gonorrhea and chlamydia and for syphilis the patient had no appreciated vaginal lesions or perineal lesions Objective Vital Signs Date Time Temp Pulse Resp B/P (MAP) Pulse Ox O2 Delivery O2 Flow Rate FiO2 11/16/24 10:00 97.7 104 21 144/76 (98) 95 Room Air 11/15/24 22:32 0.0 Result Diagram: 11/16/2452211/16/24522 Gen. No acute distress alert and oriented 4 Lungs clear to ascultation bilaterally, no wheezes rales or rhonchi appreciated Heart normal sinus rhythm no murmurs rubs or clicks noted Abdomen soft nontender bowel sounds are normoactive no vaginal lesions appreciated ulcerations or drainage Lower extremities no clubbing cyanosis, nor edema appreciated bilaterally Coagulation Studies Laboratory Tests Test 11/15/24 13:27 Prothrombin Time 10.8 SECONDS (9.0-12.0) INR International Normalized Ratio 1.1 INR Activated Partial Thromboplast Time 25 SECONDS (22-32) Coagulation Comments Problem\Assessment\Plan Problems/Diagnosis: (1) Sepsis # sepsis possibly secondary to UTI- The patient is given fluid bolus in the ED Blood cultures has been obtained Urine cultures is pending IV Zosyn and IV vancomycin 11/16 one of two blood cultures are positive repeat blood cultures are ordered # hypokalemia on the potassium replacement protocol Has resolved # nicotine use disorder- I did spent 7 minutes discussing with the patient smoking cessation and the risks of continuing to vape nicotine including: stroke, heart attack. # DVT prophylaxis SCDs and SQ Lovenox Date of Service: November 16, 2024 Billing Provider: JESSICA FINCH DO Common Visit Codes: [id number] INP/OBS CARE(HIGH) JESSICA FINCH DO November 16, 2024 22:24
[2024-11-17] MEDS ORDERED: METH-798 PO (02:11)
[2024-11-17 06:00] VITALS: BP 173/86; PULSE 82; RESP 16; TEMP 97.3; O2SAT 98
[2024-11-17] MEDS: sertraline 50mg tablet PO SCH (07:09)
[2024-11-17] MEDS: nicotine 21mg patch - 24 hr TD SCH (07:09)
[2024-11-17] MEDS: aripiprazole 10MG tablet PO SCH (07:09)
[2024-11-17 07:23] LABS: BASOPHILS # (AUTO) 0.1 X10'3 (0-0.2); BASOPHILS % (AUTO) 0.4 % (0-1); EOSINOPHILS # (AUTO) 0.2 X10'3 (0-0.9); HEMATOCRIT 38.7 % (35.0-45.0); HEMOGLOBIN 12.9 g/dl (12.0-16.0); LYMPHOCYTES # (AUTO) 4.1 X10'3 (1.1-4.8); LYMPHOCYTES % (AUTO) 18.6 % (21-51); MEAN CORPUSCULAR HGB CONC 33.3 g/dL (33.0-36.5); MEAN CORPUSCULAR VOLUME 90.2 FL (78-98); MEAN PLATELET VOLUME 8.5 FL (7.4-10.4); MONOCYTES # (AUTO) 1.2 X10'3 (0-0.9); MONOCYTES % (AUTO) 5.4 % (2-12); NEUTROPHILS # (AUTO) 16.6 X10'3 (1.8-7.7); NEUTROPHILS % (AUTO) 74.6 % (42-75); PLATELET COUNT 387 X10'3 (140-440); RED BLOOD COUNT 4.29 X10'6 (4.20-5.60); RED CELL DISTRIBUTION WIDTH 13.6 % (11.5-14.5); WHITE BLOOD COUNT 22.2 X10'3 (4.5-11.0)
[2024-11-17] MEDS: VANCOMYCIN LEVEL IV ONE (07:31)
[2024-11-17 07:46] LABS: ALANINE AMINOTRANSFERASE 34 U/L (12-78); ALBUMIN 2.5 G/DL (3.4-5.0); ALBUMIN/GLOBULIN RATIO 0.6 (1.1-1.5); ALKALINE PHOSPHATASE 108 IU/L (46-116); ANION GAP 11 (8-16); ASPARTATE AMINO TRANSFERASE 20 U/L (10-37); BILIRUBIN,TOTAL 0.4 MG/DL (0.1-1.0); BLOOD UREA NITROGEN 13 MG/DL (7-18); BUN/CREATININE RATIO 15.1 (10.0-20.0); CALCIUM 8.7 MG/DL (8.5-10.1); CHLORIDE 105 MMOL/L (99-107); CREATININE 0.86 MG/DL (0.40-0.90); GLUCOSE 104 MG/DL (70-104); POTASSIUM 3.4 MMOL/L (3.5-5.1); SODIUM 140 MMOL/L (135-145); TOTAL CARBON DIOXIDE 24.5 MMOL/L (24-32); TOTAL PROTEIN 6.8 G/DL (6.4-8.2); eCRCL 64 ML/MIN; eGFR 70 ML/MIN
[2024-11-17] MEDS: propranolol 10mg tablet PO PRN (08:20)
[2024-11-17] MEDS: topiramate 25mg tablet PO SCH (08:21)
[2024-11-17] MEDS: acetaminophen 325mg tablet PO PRN (08:41)
[2024-11-17 10:00] VITALS: BP 146/92; PULSE 77; RESP 18; TEMP 98.9; O2SAT 99
[2024-11-17 18:00] VITALS: BP 142/94; PULSE 78; RESP 18; TEMP 98.4; O2SAT 97
[2024-11-17 22:00] VITALS: BP 143/83; PULSE 75; RESP 16; TEMP 98.2; O2SAT 99
--- NOTE | 2024-11-17 22:18 | PROGRESS NOTE ---
Daily Progress Note Providers to CC ~ Antibiotic Timeout Antibiotic Ordered?: Yes Subjective I ordered a CT scan the patient is right foot to evaluate for any signs of an infection however on exam the temperature is the same as the other lower extremity and that has no erythema or noticeable significant edema of the right foot. The patient has demanded to be seen however I did not get to see the patient until proximally 5:00 p.m. due to other more urgent matters that occurred during the day - the patient was close to leaving AMA Objective Vital Signs Date Time Temp Pulse Resp B/P (MAP) Pulse Ox O2 Delivery O2 Flow Rate FiO2 11/17/24 10:00 98.9 77 18 146/92 (110) 99 Room Air 11/17/24 08:00 0.0 Result Diagram: 11/17/2462811/17/24637 Gen. No acute distress alert and oriented 4 Lungs clear to ascultation bilaterally, no wheezes rales or rhonchi appreciated Heart normal sinus rhythm no murmurs rubs or clicks noted Abdomen soft nontender bowel sounds are normoactive no vaginal lesions appreciated ulcerations or drainage Lower extremities no clubbing cyanosis, nor edema appreciated bilaterally Coagulation Studies Laboratory Tests Test 11/15/24 13:27 Prothrombin Time 10.8 SECONDS (9.0-12.0) INR International Normalized Ratio 1.1 INR Activated Partial Thromboplast Time 25 SECONDS (22-32) Coagulation Comments Problem\Assessment\Plan Problems/Diagnosis: (1) Sepsis # sepsis possibly secondary to UTI- The patient is given fluid bolus in the ED Blood cultures has been obtained Urine cultures is pending IV Zosyn and IV vancomycin 11/16 one of two blood cultures are positive repeat blood cultures are ordered 11/17 repeat blood cultures are negative CT scan of the right foot has been obtained White blood cell count is downtrending # hypokalemia on the potassium replacement protocol Has resolved # nicotine use disorder- I did spent 7 minutes discussing with the patient smoking cessation and the risks of continuing to vape nicotine including: stroke, heart attack. # DVT prophylaxis SCDs and SQ Lovenox Date of Service: November 17, 2024 Billing Provider: JESSICA FINCH DO Common Visit Codes: [id number] INP/OBS CARE(HIGH) JESSICA FINCH DO November 17, 2024 22:18
--- NOTE | 2024-11-18 04:11 | RADIOLOGY REPORT ---
CLINICAL INDICATION: sepsis with right foot infection TECHNIQUE: Noncontrast CT of the right foot was performed. Sagittal and coronal reformatted images ar e provided. COMPARISON: None CT Dose: CTDI volume is 14.4 mGy. Dose-length product is 422.4 mGy*cm FINDINGS: No fracture or dislocation. Status post fusion of the 2nd tarsometatarsal joint with a plat e and several screws. There are subchondral lucencies in the proximal 2nd metatarsal which may reflec t bone resorption. There is joint space narrowing in the navicular cuneiform joint with subchondral c ysts. There is also 3rd and 4th tarsometatarsal joint space narrowing. Heel spur noted. Dorsal and p lantar soft tissue swelling. No fluid collection. IMPRESSION: 1. Fusion hardware across the 2nd tarsometatarsal joint of the right foot. There is resorption in th e proximal metatarsal bone which represent sequelae of prior surgery or trauma however osteomyelitis is not excluded. 2. Soft tissue swelling. No fluid collection. All CT scans at this medical facility are performed using dose modulation techniques as appropriate t o a performed exam including the following: Automated exposure control was utilized; adjustment of th e MA and/or KV according to patient size; and use of iterative reconstruction technique.
[2024-11-18 05:00] VITALS: BP 136/73; PULSE 74; RESP 17; TEMP 98.7; O2SAT 95
[2024-11-18 06:19] LABS: BASOPHILS # (AUTO) 0.1 X10'3 (0-0.2); BASOPHILS % (AUTO) 0.5 % (0-1); EOSINOPHILS # (AUTO) 0.4 X10'3 (0-0.9); EOSINOPHILS % (AUTO) 2.1 % (0-6); HEMATOCRIT 40.3 % (35.0-45.0); HEMOGLOBIN 13.3 g/dl (12.0-16.0); LYMPHOCYTES # (AUTO) 3.6 X10'3 (1.1-4.8); LYMPHOCYTES % (AUTO) 18.7 % (21-51); MEAN CORPUSCULAR HEMOGLOBIN 29.9 PG (27.0-31.0); MEAN CORPUSCULAR HGB CONC 33.1 g/dL (33.0-36.5); MEAN CORPUSCULAR VOLUME 90.5 FL (78-98); MEAN PLATELET VOLUME 8.4 FL (7.4-10.4); MONOCYTES # (AUTO) 1.1 X10'3 (0-0.9); MONOCYTES % (AUTO) 5.9 % (2-12); NEUTROPHILS # (AUTO) 13.9 X10'3 (1.8-7.7); NEUTROPHILS % (AUTO) 72.8 % (42-75); PLATELET COUNT 425 X10'3 (140-440); RED BLOOD COUNT 4.45 X10'6 (4.20-5.60); RED CELL DISTRIBUTION WIDTH 13.8 % (11.5-14.5); WHITE BLOOD COUNT 19.1 X10'3 (4.5-11.0)
[2024-11-18 06:28] LABS: ALANINE AMINOTRANSFERASE 30 U/L (12-78); ALBUMIN 2.6 G/DL (3.4-5.0); ALBUMIN/GLOBULIN RATIO 0.6 (1.1-1.5); ALKALINE PHOSPHATASE 117 IU/L (46-116); ANION GAP 10 (8-16); ASPARTATE AMINO TRANSFERASE 9 U/L (10-37); BILIRUBIN,TOTAL 0.5 MG/DL (0.1-1.0); BLOOD UREA NITROGEN 9 MG/DL (7-18); BUN/CREATININE RATIO 9.6 (10.0-20.0); CALCIUM 9.1 MG/DL (8.5-10.1); CHLORIDE 105 MMOL/L (99-107); CREATININE 0.94 MG/DL (0.40-0.90); GLUCOSE 100 MG/DL (70-104); POTASSIUM 3.7 MMOL/L (3.5-5.1); SODIUM 141 MMOL/L (135-145); TOTAL CARBON DIOXIDE 25.8 MMOL/L (24-32); TOTAL PROTEIN 7.1 G/DL (6.4-8.2); eCRCL 59 ML/MIN; eGFR 63 ML/MIN
[2024-11-18 07:54] LABS: TOTAL CELLS COUNTED 100
[2024-11-18 07:55] LABS: PLATELET ESTIMATE NORMAL; POLYCHROMASIA 1+; TOXIC GRANULATION 1+
[2024-11-18 10:00] VITALS: BP 143/95; PULSE 76; RESP 18; TEMP 97.7; O2SAT 96
[2024-11-18] MEDS ORDERED: SACC250C PO (10:51)
[2024-11-18] MEDS ORDERED: AMOX500C2 PO (10:51)
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
--- NOTE | 2024-11-18 21:42 | CONSULTATION REPORT ---
Consult Consult Consultation Reason for Consult: GAS sepsis Consulting Provider: Dr. Zamora Antibiotic Days: Vanco 1, Zosyn 1 Lines: PIV Micro: 11/15 Blood- GAS HPI: Patient is a 49 year old female with hardware in her R foot who presented to [facility] on 11/15 for fever. She was planned on having hardware removed that day but had a temperature in pre-op and so was sent to the ER instead. Upon arrival, she complained of abdominal pain and so had several sources investigated. Ultimately she was admitted for sepsis and started on broad spectrum therapy (per admission H&P her foot did not look too bad at the time). ID is now asked to consult because blood cultures are growing GAS. On current exam, patient denies any breaks in the skin barrier that could have been portals of entry. She says her foot is much less swollen today which she attributes to the antibiotics. Past Medical/Surgical History: Seizure disorder, arthritis of the feet s/p R foot surgery, ventral hernia repair, gallbladder surgery, tonsillectomy Current Medications Medications (Trade) Dose Ordered Sig/Flaca Route PRN Reason Start Time Stop Time Status Last Admin Dose Admin Acetaminophen (Tylenol tablet) 650 mg ONCE ONCE PO 11/15/24 12:20 11/15/24 12:21 DC 11/15/24 12:26 650 MG Sodium Chloride 1,000 ml @ 1,000 mls/hr ONCE ONCE IV 11/15/24 14:05 11/15/24 15:04 DC 11/15/24 14:51 1,000 MLS/HR Ketorolac Tromethamine (Toradol inj. 30mg/ml) 30 mg ONCE ONCE IV 11/15/24 14:05 11/15/24 14:17 DC 11/15/24 14:53 30 MG Piperacillin/ Tazobactam/ Dextrose 50 ml @ 12.5 mls/hr Q8H IV 11/15/24 14:05 11/15/24 19:53 DC 11/15/24 14:31 12.5 MLS/HR Acetaminophen (Tylenol tablet) 650 mg ONCE ONCE PO 11/15/24 14:10 11/15/24 14:17 DC 11/15/24 14:53 650 MG Dexamethasone Sodium Phosphate (Decadron 10mg/ ml inj) 10 mg ONCE STAT IV 11/15/24 16:48 11/15/24 16:58 DC 11/15/24 17:30 10 MG Vancomycin HCl 250 ml @ 166 mls/hr ONCE ONCE IV 11/15/24 17:00 11/15/24 18:30 DC 11/15/24 18:45 166 MLS/HR Acetaminophen (Tylenol tablet) 975 mg ONCE ONCE PO 11/15/24 18:35 11/15/24 18:38 DC 11/15/24 18:45 975 MG Acetaminophen (Tylenol tablet) 650 mg Q6H PRN PO MILD PAIN (1-3 ON 0-10 SCALE) 11/15/24 19:25 11/18/24 14:44 DC 11/17/24 08:41 650 MG Docusate Sodium (Colace capsule) 100 mg BID PO 11/15/24 20:00 11/18/24 14:44 DC 11/18/24 07:53 100 MG Potassium Chloride (K-DUR tablet) 20 meq Q4H PRN PO Potassium 3.1-3.4 11/15/24 19:25 11/18/24 14:44 DC 11/17/24 20:22 20 MEQ Enoxaparin Sodium (Lovenox syringe) 40 mg Q24H@2000 SQ 11/15/24 20:00 11/18/24 14:44 DC 11/16/24 19:43 40 MG Piperacillin/ Tazobactam/ Dextrose 100 ml @ 25 mls/hr Q8H IV 11/16/24 00:00 11/18/24 14:44 DC 11/18/24 10:09 25 MLS/HR Vancomycin HCl 250 ml @ 166 mls/hr Q8H@0000,0800,1600 IV 11/16/24 08:00 11/18/24 14:44 DC 11/18/24 07:49 166 MLS/HR Non-Formulary Medication 1 ONCE@0730 ONCE IV 11/17/24 07:30 11/17/24 07:31 DC 11/17/24 07:31 1 Sodium Chloride 1,000 ml @ 100 mls/hr Q10H IV 11/16/24 07:55 11/18/24 14:44 DC 11/18/24 05:18 100 MLS/HR Nicotine (Habitrol patch) 1 patch ONCE ONCE TD 11/16/24 10:35 11/16/24 10:44 DC 11/16/24 10:47 1 PATCH Nicotine (Habitrol patch) 1 patch DAILY TD 11/17/24 08:00 11/18/24 14:44 DC 11/18/24 07:53 1 PATCH Aripiprazole (Abilify 10mg tablet) 10 mg DAILY PO 11/17/24 08:00 11/18/24 14:44 DC 11/18/24 07:53 10 MG Propranolol HCl (Inderal tablet) 10 mg DAILY PRN PO for anxiety/agitation 11/16/24 10:35 11/18/24 14:44 DC 11/17/24 08:20 10 MG Topiramate (Topamax tablet) 50 mg DAILY PO 11/17/24 08:00 11/18/24 14:44 DC 11/18/24 07:53 50 MG Sertraline HCl (Zoloft tablet) 100 mg DAILY PO 11/17/24 08:00 11/18/24 14:44 DC 11/18/24 07:53 100 MG Social History: Works at [employer] Family History: Noncontributory ROS: As in HPI, otherwise negative Objective: Vitals: Afebrile, 75, 16, 143/83, 99% on RA General: Alert, NAD HEENT: NC/AT, normal conjunctiva, no oral lesions CV: Regular Resp: CTA B Abd: Soft, nontender, nondistended Ext: Well healed surgical scars on R foot, no edema/warmth Lines: PIV ok Laboratory Tests 11/18/24 05:06 11/15 CT A/P No acute abnormality in the abdomen or pelvis. 11/18 CT LE 1. Fusion hardware across the 2nd tarsometatarsal joint of the right foot. There is resorption in the proximal metatarsal bone which represent sequelae of prior surgery or trauma however osteomyelitis is not excluded 2. Soft tissue swelling. No fluid collection. Assessment: // GAS Septicemia - source unclear. Her foot looks quite good though it is her biggest risk factor identified // Leukocytosis, trending down // R foot hardware with plan for removal // Antibiotic Allergies: none known Plan: - Recommend 10 more days of high dose Amoxicillin for GAS - Patient was given counseling that the best way to know if her foot bones are involved in her infection may be intraop. She was given info for the ID office and I am happy to be involved if there are signs of deep infection during hardware removal. - Thank you for the chance to participate in your patient's care MICHAEL CHOI DO November 18, 2024 21:41
[2024-11-19 06:12] LABS: CHLAMYDIA TRACHOMATIS, NAA Negative (Negative)
== END 2024-11-18 14:40 | disposition home or self-care (01) | DRG 872 ==
LOC: ER 12:02 → ED HOLD 19:38 → ORTHO 4S 21:20
PROVIDERS: ADMIT Family Medicine; ATTEND Family Medicine
PROC: BW211ZZ Computerized Tomography (CT Scan) of Abdomen and Pelvis using Low Osmolar Contrast (ICD-10-PCS; principal; 2024-11-15)
DX: A40.0 Sepsis due to streptococcus, group A (principal); N39.0 Urinary tract infection, site not specified; E87.1 Hypo-osmolality and hyponatremia; E87.6 Hypokalemia; G40.909 Epilepsy, unspecified, not intractable, without status epilepticus; F17.290 Nicotine dependence, other tobacco product, uncomplicated; Z88.5 Allergy status to narcotic agent; Z79.899 Other long term (current) drug therapy; Z82.49 Family history of ischemic heart disease and other diseases of the circulatory system; Z82.3 Family history of stroke
CPT/HCPCS: 36415; 70450; 71045; 73700; 74177; 80048; 80053; 80202; 81001; 83605; 83735; 84145; 85007; 85025; 85610; 85730; 87040; 87077; 87081; 87088; 87186; 87491; 96365; 96367; 96372; 96375; 99285; C1758; G0378; J1100; J1650; J1885; J2543; J3370; J7030; Q9967

== ENCOUNTER 2024-12-20 10:32 | Day surgery (SDC) | payer OTHER ==
[2024-12-14 12:56] LABS: MEAN PLATELET VOLUME 8.7 FL (7.4-10.4); PRE OP HEMATOCRIT 44.7 % (35.0-45.0); PRE OP HEMOGLOBIN 14.9 g/dL (12.0-16.0); PRE OP PLATELET COUNT 353 X10'3 (140-440); PRE OP WHITE BLOOD COUNT 7.7 10'3 (4.8-10.8); RED CELL DISTRIBUTION WIDTH 14.0 % (11.5-14.5)
[2024-12-14 13:06] LABS: LEUKOCYTE ESTERASE ,URINE NEGATIVE (Neg); NITRITES, URINE NEGATIVE (Neg); OCCULT BLOOD,URINE TRACE-INTACT (Neg)
[2024-12-14 13:07] LABS: UA COLLECTION TYPE CLN CATCH MIDSTREAM
[2024-12-14 13:12] LABS: RENAL CELLS, URINE MODERATE /HPF; SQUAMOUS EPITHELIAL CELL,UR MANY /LPF (FEW)
[2024-12-14 13:14] LABS: PRE OP INR 1.0 INR; PRE OP PARTIAL THROMB. TIME 25.0 SECONDS (22-32); PRE OP PROTIME 10.3 SECONDS (9.0-12.0)
[2024-12-14 13:17] LABS: CREATININE 0.93 MG/DL (0.40-0.90); PRE OP ALT 32 U/L (30-65); PRE OP ANION GAP 11 (8-16); PRE OP AST 21 U/L (10-37); PRE OP BILIRUB, TOTAL 0.4 MG/DL (0.0-1.0); PRE OP GLUCOSE 103 MG/DL (70-104); PRE OP POTASSIUM 4.0 MMOL/L (3.4-5.1); PRE OP SODIUM 140 MMOL/L (135-145); TOTAL CARBON DIOXIDE 26.4 MMOL/L (24-32); eGFR 64 ML/MIN
[2024-12-20] VITALS (11 sets, daily range): BP systolic 93–153; BP diastolic 47–89; PULSE 69–89; RESP 11–22; TEMP 98.9; O2SAT 94–99
[~2024-12-20] VITALS: Ht 160 cm; Wt 95.4 kg
[2024-12-20] MEDS: ceFAZolin 2gm/dext,iso 50mL 50 ML IV ONE (05:30)
[2024-12-20] MEDS: DOCUMENT DATE & TIME OF BETA-BLOCKER PO ONE (05:30)
[~2024-12-20 10:32] MED LIST changes: -SERT-434 PO
[2024-12-20] MEDS ORDERED: morphine 4 MG/ML inj SYRINge IV PRN (12:05)
[2024-12-20] MEDS ORDERED: labetalol 20mg/4ml (5mg/ml) syringe IV PRN (12:05)
[2024-12-20] MEDS ORDERED: meperidine/PF 25mg/ml syringe IV PRN ×3 (12:05)
[2024-12-20] MEDS ORDERED: ondansetron/PF 4mg/2ml inj IV PRN (12:05)
[2024-12-20] MEDS ORDERED: enalaprilat 1.25mg/ml 2ml vial IV PRN (12:05)
[2024-12-20] MEDS ORDERED: ringers solution, lacted 1,000 ML IV SCH (12:05)
[2024-12-20] MEDS ORDERED: MIDAZolam 5mg/ml 2ml vial IV ONE (14:06)
[2024-12-20] MEDS ORDERED: fentaNYL/PF 50MCG/1 ML 2ML syringe ONE (14:13)
[2024-12-20] MEDS ORDERED: LIDOcaine 1%/PF 5ML 10 MG/ML VIAL ONE (14:28)
[2024-12-20] MEDS ORDERED: propofol inj 20 ML IV ONE (14:28)
--- NOTE | 2024-12-20 15:41 | ANESTHESIA RECORDS ---
Nerve Block Providers to CC ~ Diagnosis: Nerve Block requested by: JOHNNY RAMIREZ DPM Neuraxial/Peripheral Nerve Block requested for Post-operative analgesia by Physician above DIAGNOSIS: Post-operative pain. (Body Area) Shoulder: [ ] Arm: [ ] Hand: [ ] Hip: [ ] Knee: [ ] Ankle: [ Right ] Foot: [ ] Leg: [ ] Abdomen: [ ] Other: [ ] Post-operative pain expected to be/is inadequately managed by oral or IV medicines. Regional anesthetic expected to facilitate rehabilitation and/or discharge from facility. Other:[ ] Procedure Performed: Popliteal Lateral: Right Time out Done?: Yes Time of Time out: 14:10 Procedure Details: PROCEDURE DETAILS: Risks, benefits and alternatives explained Informed consent obtained, and patient wishes to proceed Conscious sedation with indicated monitors Patient positioned, pertinent anatomy defined, sterile technique used Needle used: [ ] 3 1/8 inch Stimuplex Ultra 22ga [x ] 4 inch Stimuplex Ultra 20ga [ ] 6 inch Stimuplex Ultra 20ga [ ] 6 inch, Quikbloc over the needle catheter set 20ga [ ] 4 inch Quikbloc over the needle catheter set 20ga [ ]Other: [ ] Loss of twitch @ [ ]mA [x ] Single Injection [ ] Catheter Ultrasound Guidance Used: [x ] Yes [ ] No Attempts:[ ] Medicines injected: [x ]Clonidine Amt:[ 70 mcgs ] [x ]Dexamethasone Amt:[____3 mgs ] [x ]Ropivacaine Amt:[____0.5% 30 cc ] [ ]Bupivacaine Amt:[ ] [ ]Lidocaine Amt:[ ] [ ]Exparel 1.33%:[ ] [ ]Epinephrine Amt[ ] [ ]Other: [ ] Intermittent aspiration during local anesthetic administration No symptoms of intraneural or intravenous injection Patient tolerated procedure well Comments Right Politeal fossa Block Pt in Lt lateral position with Left Leg flexed at 90 Degrees. Lateral approach. Ultrasound probe placed back of thigh 2 inches above the knee joint. Easy visualization of the Sciatic nerve. 1% xylocaine local anesthetic. Easy visualization of Spreading of local anesthetic anterior and posterior to the Sciatic nerve sub paraneurally inside sciatic nerve sheath. Meaningful convers ation t throughout. No Pain or discomfort during injection. PACO MICHELLE MD Dec 20, 2024 15:41
[2024-12-20] MEDS ORDERED: ondansetron/PF 4mg/2ml inj ONE (15:53)
[2024-12-20] MEDS ORDERED: ROPIVAcaine 0.5% (5mg/ml) 30ml vial ONE (15:53)
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
== END 2024-12-20 17:48 | disposition home or self-care (01) ==
LOC: PAS 10:32
PROVIDERS: ATTEND Podiatrist Foot & Ankle Surgery
DX: T84.84XA Pain due to internal orthopedic prosthetic devices, implants and grafts, initial encounter (principal); M19.071 Primary osteoarthritis, right ankle and foot; F41.9 Anxiety disorder, unspecified; F32.A Depression, unspecified; G47.30 Sleep apnea, unspecified; T84.213A Breakdown (mechanical) of internal fixation device of bones of foot and toes, initial encounter; Y83.8 Other surgical procedures as the cause of abnormal reaction of the patient, or of later complication, without mention of misadventure at the time of the procedure; Z79.01 Long term (current) use of anticoagulants; Z79.899 Other long term (current) drug therapy; E66.01 Morbid (severe) obesity due to excess calories; Z98.890 Other specified postprocedural states; Z90.49 Acquired absence of other specified parts of digestive tract; Z88.8 Allergy status to other drugs, medicaments and biological substances; G89.18 Other acute postprocedural pain
CPT/HCPCS: 20680; 20900; 28740; 36415; 64445; 80053; 81001; 82948; 85025; 85610; 85730; A6222; C1713; J1100; J2250; J2405; J2704; J2795; J3010; J3490; J7030; J7120; Z7506; Z7508; Z7512; A4618; A6253; A6446; A6449; A6455; A7000; C1776